=== PATIENT | female | born 1985 | race Two or more races ===

== ENCOUNTER 2018-03-19 09:58 | Emergency (ER) | payer OTHER ==
--- NOTE | 2018-03-19 11:09 | XRAY Report ---
Reason: injury Procedure Date: 03/19/2018 Accession Number: [id number] / [id number] Procedure: XR - Finger(s) LT CPT Code: FULL RESULT: EXAM: LEFT SECOND DIGIT RADIOGRAPHY EXAM DATE: 03/19/2018 10:49 AM. CLINICAL HISTORY: Finger pain. Dropped a 50 pound weight on second digit of left hand. COMPARISON: None. TECHNIQUE: 3 views. FINDINGS: Bones: Normal. No fracture or bone lesion. Joints: Normal. No subluxations. Soft Tissues: Soft tissue edema. IMPRESSION: 1. No acute osseous abnormalities. RADIA
--- NOTE | 2018-03-19 11:27 | ED Physician Documentation ---
PD HPI UPPER EXT INJURY - Stated complaint Stated Complaint: FINGER INJURY - Chief complaint Chief Complaint: Ext Problem - History obtained from History obtained from: Patient - History of Present Illness Location: Left, Finger Type of injury: Blunt / blow Timing - onset: Other (Saturday) Timing - details: Abrupt onset Severity Comments: moderate Improved by: Immobilization Worsened by: Moving Associated symptoms: Discolored. No: Weakness, Numbness, Tingling Contributing factors: No: Anticoagulated Similar symptoms before: Has not had sx before Review of Systems Constitutional: denies: Fever Eyes: denies: Discharge Ears: denies: Ear pain Cardiac: denies: Chest pain / pressure GI: denies: Abdominal Pain Musculoskeletal: reports: Extremity pain, Joint pain. denies: Neck pain PD PAST MEDICAL HISTORY - Past Medical History Past Medical History: No - Past Surgical History Past Surgical History: No - Present Medications Home Medications: Ambulatory Orders Medication Instructions Recorded Confirmed No Known Home Medications 03/19/18 03/19/18 - Allergies Allergies/Adverse Reactions: Allergies Allergy/AdvReac Type Severity Reaction Status Date / Time No Known Drug Allergies Allergy Verified 03/19/18 10:04 - Social History Does the pt smoke?: No Smoking Status: Never smoker Does the pt drink ETOH?: Yes Does the pt have substance abuse?: No - Immunizations Immunizations are current?: Yes - POLST Patient has POLST: No PD ED PE NORMAL - General General: Alert and oriented X 3, No acute distress - HEENT HEENT: Atraumatic, PERRL, EOMI, Ears normal - Cardiac Cardiac: RRR - Respiratory Respiratory: No respiratory distress - Extremities Extremities: No deformity, Normal ROM s pain. No: No tenderness to palpate (The patient Has tenderness to palpation of the left distal index finger, the patient has normal active range of motion in flexion and extension both passively and against tension. There is no injury to the nail. Normal sensation light touch and normal radial pulse and cap refill) - Neuro Neuro: Alert and oriented X 3, Normal speech - Psych Psych: Normal affect Results - Vitals Vitals: Vital Signs - 24 hr 03/19/18 09:59 Temperature 36.3 C L Heart Rate 68 Respiratory 16 Rate Blood Pressure 132/74 H O2 Saturation 100 Oxygen O2 Source Room air - Rads (name of study) XR finger Radiology: Final report received PD MEDICAL DECISION MAKING - ED course ED course: No acute fracture, the patient was placed in a splint and will follow-up as an outpatient. I discussed warning signs and recommended returning for any worsening or any concerns Departure - Departure Disposition: 01 Home, Self Care Clinical Impression: Finger contusion Qualifiers: Encounter type: initial encounter Finger: unspecified finger Damage to nail status: without damage Qualified Code(s): S60.00XA - Contusion of unspecified finger without damage to nail, initial encounter Condition: Good Instructions: ED Contusion Hand Ch Follow-Up: [facility]EL[facility] Lawson [Provider Group] - Within 1 week Comments: Please return for any worsening or any concerns. Forms: Activity restrictions
[2018-03-19 11:31] VITALS: BP 126/75
== END 2018-03-19 11:32 | disposition home or self-care (01) ==
LOC: ED 09:58
DX: S60.00XA Contusion of unspecified finger without damage to nail, initial encounter (principal); W22.8XXA Striking against or struck by other objects, initial encounter
CPT/HCPCS: 29130; 73140; 99282; 99283

== ENCOUNTER 2018-08-17 15:54 | Emergency (ER) | payer OTHER ==
[2018-08-17 16:03] VITALS: BP 116/73
== END 2018-08-17 17:48 | disposition left against medical advice (07) ==
LOC: ED 15:54
DX: Z53.21 Procedure and treatment not carried out due to patient leaving prior to being seen by health care provider (principal)

== ENCOUNTER 2018-08-27 00:19 | Emergency (ER) | payer OTHER ==
[2018-08-27] MEDS ORDERED: PENICILLIN VK 250 MG TABLET PO ONE (01:46)
== END 2018-08-27 09:19 | disposition home or self-care (01) ==
LOC: ED 00:19
DX: J02.0 Streptococcal pharyngitis (principal)
CPT/HCPCS: 87430; 99281; 99283; A9270

== ENCOUNTER 2019-06-07 12:47 | Emergency (ER) | payer OTHER ==
--- NOTE | 2019-06-07 12:57 | ED Physician Documentation ---
PD HPI URI - Stated complaint Stated Complaint: SORE THROAT - History obtained from History obtained from: Patient - History of Present Illness Timing - onset: How many days ago (2) Timing duration: Days (2) Timing details: Gradual onset, Still present Associated symptoms: Fever, Sore throat, Swollen nodes. 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.) Similar symptoms before: Has not had sx before Recently seen: Not recently seen Review of Systems Constitutional: reports: Fever Nose: denies: Rhinorrhea / runny nose, Congestion Throat: reports: Sore throat, Swollen tonsils Respiratory: denies: Cough GI: denies: Nausea, Vomiting, Diarrhea Skin: denies: Rash PD PAST MEDICAL HISTORY - Past Medical History Cardiovascular: None Respiratory: None Neuro: None Endocrine/Autoimmune: None - Past Surgical History Past Surgical History: No - Present Medications Home Medications: Ambulatory Orders Medication Instructions Recorded Confirmed Amoxicillin 500 mg PO TID #21 capsule 06/07/19 Ibuprofen [Motrin] 600 mg PO TID PRN #20 tab 06/07/19 dexAMETHasone [Decadron] 4 mg PO DAILY #5 tablet 06/07/19 - Allergies Allergies/Adverse Reactions: Allergies Allergy/AdvReac Type Severity Reaction Status Date / Time No Known Drug Allergies Allergy Verified 08/17/18 16:03 - Social History Does the pt smoke?: No Smoking Status: Never smoker Does the pt drink ETOH?: Yes Does the pt have substance abuse?: No - Immunizations Immunizations are current?: Yes - POLST Patient has POLST: No PD ED PE NORMAL - Vitals Vital signs reviewed: Yes - General General: Alert and oriented X 3, No acute distress, Well developed/nourished - HEENT HEENT: Ears normal. No: Pharynx benign (Tonsils are red and swollen with exudate primarily on the left. No peritonsillar swelling. Normal voice.) - Neck Neck: Supple, no meningeal sign, Other (anterior adenopathy) - Cardiac Cardiac: RRR, No murmur - Respiratory Respiratory: Clear bilaterally - Derm Derm: Normal color, Warm and dry, No rash Results - Vitals Vitals: Vital Signs - 24 hr 06/07/19 12:54 Temperature 36.8 C Heart Rate 70 Respiratory 18 Rate Blood Pressure 125/70 O2 Saturation 100 Oxygen O2 Source Room air - Labs Labs: Laboratory Tests 06/07/19 13:00 Group A Strep Rapid POSITIVE H PD MEDICAL DECISION MAKING - ED course Complexity details: reviewed results, considered differential, d/w patient Departure - Departure Disposition: 01 Home, Self Care Clinical Impression: Acute streptococcal pharyngitis Condition: Stable Record reviewed to determine appropriate education?: Yes Instructions: ED Strep Pharyngitis Conf Prescriptions: Amoxicillin 500 mg PO TID #21 capsule dexAMETHasone [Decadron] 4 mg PO DAILY #5 tablet Ibuprofen [Motrin] 600 mg PO TID PRN #20 tab PRN Reason: Pain Comments: Your rapid strep test is positive so that makes it pretty easy. Stay well- hydrated and use ibuprofen 3 times a day for fevers and pains. Add Tylenol if needed for pain. Amoxicillin 3 times a day for a week for the infection. You can add Decadron steroid for inflammation daily for the next several days. Off work today. You would be okay to resume work tomorrow since she will have been treated with the antibiotics. Other activity as usual. Avoid droplet spread such as drinking cups and forks and niacin such to reduce spreading it to your kids and family. Forms: Activity restrictions Discharge Date/Time: 06/07/19 13:41
[2019-06-07 12:58] VITALS: BP 125/70
[2019-06-07 13:14] LABS: RAPID STREP SCREEN POSITIVE (Negative)
[2019-06-07] MEDS ORDERED: IBUPROFEN 600 MG TABLET PO STA (13:17)
[2019-06-07] MEDS ORDERED: CHERRY SYRUP 10 ML UDC PO ONE (13:17)
[2019-06-07] MEDS ORDERED: AMOXICILLIN 250 MG CAPSULE PO STA (13:17)
[2019-06-07] MEDS ORDERED: DEXAMETHASONE 10 MG/ML VIAL PO STA (13:17)
== END 2019-06-07 13:41 | disposition home or self-care (01) ==
LOC: ED 12:47
DX: J02.0 Streptococcal pharyngitis (principal)
CPT/HCPCS: 87430; 99283; A9270